=== PATIENT | female | born 1990 | race Caucasian/White ===

== ENCOUNTER 2020-05-03 07:40 | Emergency (ER) | payer MEDICAID ==
[~2020-05-03] VITALS: Ht 152.4 cm; Wt 68.0 kg
[2020-05-03] MEDS ORDERED: LORAZEPAM 2MG/ML CPJ IV STA (08:20)
[2020-05-03] MEDS ORDERED: SODIUM CHLORIDE 0.9% 1,000 ML IV ONE (08:20)
[2020-05-03 08:44] LABS: BASOPHILS % 0.8 % (0.0-2.0); EOSINOPHILS % 0.1 % (0.0-5.0); HEMATOCRIT. 43.4 % (36.0-48.0); HEMOGLOBIN. 14.9 g/dL (12.0-16.0); LYMPHOCYTES % 23.2 % (20.0-50.0); MEAN CORPUSCULAR HEMOGLOBIN 30.5 pg (28.0-32.0); MEAN CORPUSCULAR VOLUME 88.9 fL (81.0-99.0); MONOCYTES % 4.5 % (2.0-8.0); NEUTROPHILS % 71.4 % (40.0-76.0); PLATELET 458 x1000/uL (130-400); RED BLOOD CELL COUNT 4.88 mill/uL (4.2-5.4); RED CELL DISTRIBUTION WIDTH 13.8 % (11.6-14.6)
[2020-05-03] MEDS ORDERED: LORAZEPAM 2MG/ML CPJ IV ONE ×2 (08:45→12:45)
[2020-05-03 08:52] LABS: CHLORIDE 111 mEq/L (98-107)
[2020-05-03 08:56] LABS: CLARITY URINE CLEAR (CLEAR); COLOR URINE YELLOW (YELLOW); KETONES URINE NEGATIVE (NEGATIVE); LEUKOCYTE ESTERASE URINE TRACE (NEGATIVE); NITRITE URINE NEGATIVE (NEGATIVE); OCCULT BLOOD URINE NEGATIVE (NEGATIVE); PROTEIN URINE NEGATIVE (NEGATIVE); SPECIFIC GRAVITY URINE 1.011 (1.005-1.030); UROBILINOGEN URINE 0.2 E.U./dL (0.2-1.0)
[2020-05-03 08:58] LABS: ETHANOL BLOOD 41 mg/dL
[2020-05-03 09:02] LABS: CREATINE KINASE 146 IU/L (26-192)
[2020-05-03 09:08] LABS: *BARBITURATES SCREEN URINE NEGATIVE (NEGATIVE); *BENZODIAZEPINES SCREEN URINE NEGATIVE (NEGATIVE); *COCAINE SCREEN URINE NEGATIVE (NEGATIVE)
[2020-05-03 09:09] LABS: METHADONE URINE SCREEN NEGATIVE (NEGATIVE); OPIATES URINE SCREEN NEGATIVE (NEGATIVE); PHENCYCLIDINE URINE SCREEN NEGATIVE (NEGATIVE)
[2020-05-03 09:16] LABS: *AMPHETAMINES SCREEN URINE PRESUMTIVE POSITIVE (NEGATIVE); CANNABINOID URINE SCREEN PRESUMTIVE POSITIVE (NEGATIVE)
[2020-05-03 13:45] VITALS: BP 110/66
== END 2020-05-03 14:06 | disposition home or self-care (01) ==
LOC: EDBD 07:40 → ER 07:40
DX: R41.82 Altered mental status, unspecified (principal); F15.10 Other stimulant abuse, uncomplicated; Z98.890 Other specified postprocedural states
CPT/HCPCS: 36415; 80053; 80305; 80307; 80320; 80329; 81003; 81025; 82550; 85025; 93005; 96361; 96374; 96376; 99285; J2060; J7030; G0480

== ENCOUNTER 2020-06-01 09:57 | Emergency (ER) | payer MEDICAID ==
[~2020-06-01] VITALS: Ht 160 cm; Wt 70.0 kg
[2020-06-01] MEDS ORDERED: SODIUM CHLORIDE 0.9% 1,000 ML IV ONE ×2 (10:31→12:06)
[2020-06-01] MEDS ORDERED: LORAZEPAM 2MG/ML CPJ IM STA (10:31)
[2020-06-01] MEDS ORDERED: HALOPERIDOL LACTATE 5MG/ML VIAL IM STA (10:31)
[2020-06-01 11:16] LABS: CLARITY URINE CLEAR (CLEAR); COLOR URINE YELLOW (YELLOW); KETONES URINE NEGATIVE (NEGATIVE); LEUKOCYTE ESTERASE URINE NEGATIVE (NEGATIVE); NITRITE URINE NEGATIVE (NEGATIVE); OCCULT BLOOD URINE NEGATIVE (NEGATIVE); PROTEIN URINE NEGATIVE (NEGATIVE); UROBILINOGEN URINE 0.2 E.U./dL (0.2-1.0)
[2020-06-01 11:29] LABS: HEMATOCRIT. 37.5 % (36.0-48.0); HEMOGLOBIN. 12.9 g/dL (12.0-16.0); LYMPHOCYTES % 20.8 % (20.0-50.0); MEAN CORPUSCULAR HEMOGLOBIN 30.1 pg (28.0-32.0); MEAN CORPUSCULAR VOLUME 87.8 fL (81.0-99.0); MEAN PLATELET VOLUME 7.7 fl (7.4-10.4); MONOCYTES % 6.4 % (2.0-8.0); NEUTROPHILS % 71.8 % (40.0-76.0); PLATELET 332 x1000/uL (130-400); RED BLOOD CELL COUNT 4.28 mill/uL (4.2-5.4); RED CELL DISTRIBUTION WIDTH 13.4 % (11.6-14.6)
[2020-06-01 11:35] LABS: CHLORIDE 108 mEq/L (98-107)
[2020-06-01 11:46] LABS: HCG SCREEN NEGATIVE
[2020-06-01 11:51] LABS: *BENZODIAZEPINES SCREEN URINE NEGATIVE (NEGATIVE); *COCAINE SCREEN URINE NEGATIVE (NEGATIVE); METHADONE URINE SCREEN NEGATIVE (NEGATIVE); OPIATES URINE SCREEN NEGATIVE (NEGATIVE)
[2020-06-01 11:59] LABS: ETHANOL BLOOD < 10 mg/dL
[2020-06-01 12:00] LABS: PHENCYCLIDINE URINE SCREEN NEGATIVE (NEGATIVE)
[2020-06-01] MEDS ORDERED: KCL 20MEQ/100ML PREMIX 100 ML IV ONE (12:00)
[2020-06-01 12:01] LABS: *AMPHETAMINES SCREEN URINE PRESUMTIVE POSITIVE (NEGATIVE); CANNABINOID URINE SCREEN NEGATIVE (NEGATIVE)
[2020-06-01 12:02] LABS: *BARBITURATES SCREEN URINE NEGATIVE (NEGATIVE)
[2020-06-01 14:46] LABS: BASOPHILS % 0.4 % (0.0-2.0); EOSINOPHILS % 0.1 % (0.0-5.0); HEMATOCRIT. 35.4 % (36.0-48.0); HEMOGLOBIN. 12.2 g/dL (12.0-16.0); LYMPHOCYTES % 23.1 % (20.0-50.0); MEAN CORPUSCULAR HEMOGLOBIN 30.4 pg (28.0-32.0); MEAN CORPUSCULAR VOLUME 88.3 fL (81.0-99.0); MEAN PLATELET VOLUME 7.8 fl (7.4-10.4); MONOCYTES % 6.8 % (2.0-8.0); NEUTROPHILS % 69.6 % (40.0-76.0); PLATELET 311 x1000/uL (130-400); RED BLOOD CELL COUNT 4.01 mill/uL (4.2-5.4); RED CELL DISTRIBUTION WIDTH 13.7 % (11.6-14.6)
[2020-06-01 14:51] LABS: CHLORIDE 114 mEq/L (98-107)
[2020-06-02 17:23] VITALS: BP 126/84
== END 2020-06-02 17:32 | disposition home or self-care (01) ==
LOC: ER 09:57
DX: Z03.818 Encounter for observation for suspected exposure to other biological agents ruled out (principal); F23 Brief psychotic disorder; F15.129 Other stimulant abuse with intoxication, unspecified; R41.82 Altered mental status, unspecified
CPT/HCPCS: 36415; 71045; 80053; 80305; 80307; 80320; 80329; 81003; 81025; 82962; 84703; 85025; 87635; 93005; 96365; 96372; 99285; C9803; J1630; J2060; J3480; J7030; G0480